=== PATIENT | male | born 1990 | race Caucasian/White ===

== ENCOUNTER 2024-11-16 12:11 | Emergency (ER) | payer OTHER ==
[~2024-11-16] VITALS: Ht 172.7 cm; Wt 70.0 kg
[2024-11-16 12:25] VITALS: BP 130/93; PULSE 101; RESP 18; TEMP 98.2; O2SAT 98
== END 2024-11-16 17:31 | disposition left against medical advice (07) ==
LOC: ER 12:11
DX: R07.89 Other chest pain (principal); R06.02 Shortness of breath; Z53.21 Procedure and treatment not carried out due to patient leaving prior to being seen by health care provider
CPT/HCPCS: 93005